=== PATIENT | female | born 1945 | race Caucasian/White ===

== ENCOUNTER 2017-03-02 15:24 | Inpatient (IN) | payer MEDICARE, OTHER ==
[~2017-03-02] VITALS: Ht 160 cm; Wt 51.1 kg
--- NOTE | 2017-03-02 16:01 | NUR ---
D/C INSTRUCTIONS EXPLAINED TO PT AND PTS DAUGHTER. D/C PAPERWORK SIGNED BY PTS DAUGHTER AND PLACED IN CHART. IV TO RIGHT FOREARM REMOVED WITH CATH TIP INTACT. COVERED SITE WITH 2X2 GAUZE PADS AND SECURED WITH TAPE. PT IS D/C WITH [facility] WITH 02 AT 2L VIA NC. DAUGHTER IS GETTING BELONGINGS TOGETHER NOW. WILL CONTINUE TO MONITOR.
--- NOTE | 2017-03-02 16:21 | NUR ---
RECEIVED PT VIA WHEELCHAIR WITH FAMILY MEMBERS. PT IS ON HOME 02 AT 2L VIA NC. ALERT AND ORIENTED. WILL ADMIT PT AND CONTINUE WITH PLAN OF CARE.
[2017-03-02] MEDS ORDERED: BAYER CHEWABLE81 MG PO (16:26)
[2017-03-02] MEDS ORDERED: PROVENTIL HFA6.7 GM INH (16:26)
[2017-03-02] MEDS ORDERED: PACERONE200 MG PO (16:26)
[2017-03-02] MEDS ORDERED: BUMEX2 MG PO (16:27)
[2017-03-02] MEDS ORDERED: BUSPIRONE HCL7.5 MG PO (16:28)
[2017-03-02] MEDS ORDERED: LISINOPRIL5 MG PO (16:28)
[2017-03-02] MEDS ORDERED: COREG 3.1253.125 MG PO (16:28)
[2017-03-02] MEDS ORDERED: ZOCOR10 MG PO (16:29)
[2017-03-02] MEDS ORDERED: TEMAZEPAM30 MG PO (16:30)
[2017-03-02] MEDS ORDERED: ALDACTONE25 MG PO (16:30)
[2017-03-02] MEDS ORDERED: HYDROCODON-ACE1 EAC7 PO (16:31)
[2017-03-02 16:34] VITALS: BP 147/70; BMI 18.8
[2017-03-02 17:01] LABS: BASOPHILS 0.6 % (0-2); EOSINOPHILS 1.1 % (0-7); HEMATOCRIT 40.1 % (36.0-48.0); LYMPHOCYTES 23.7 % (15-50); MCH 28.6 pg (26.0-34.0); MCHC 29.9 g/dL (31.0-37.0); MCV 95.5 fL (80.0-100.0); MONOCYTES 8.2 % (2-11); NEUTROPHILS 66.4 % (40-80); RDW 15.6 % (11.5-14.5); WBC 5.4 10x3/uL (4.8-10.8)
--- NOTE | 2017-03-02 17:15 | NUR ---
PT SITED WITH 22G IV CATHETER TO RIGHT FOREARM X1 STICK. TOLERATED WELL.
[2017-03-02 17:17] LABS: PLATELET COUNT 208 10x3/uL (130-400)
--- NOTE | 2017-03-02 17:43 | NUR ---
PT IS CURRENTLY SITTING UP IN BED WITH EYES OPEN EATING DINNER. NO NEED AT THIS CURRENT TIME. QUICKSTART IS DONE, ADMISSION ASSESSMENT IS DONE, AND ADMISSION HISTORY IS DONE. WILL CONTINUE TO MONITOR.
[2017-03-02 18:00] LABS: ALBUMIN 3.3 g/dL (3.4-5.0); ALKALINE PHOSPHATASE 140 U/L (46-116); ALT (SGPT) 17 U/L (10-68); BILIRUBIN - TOTAL 0.83 mg/dL (0.2-1.3); CALC OSMOLALITY 291 mosm/kg (275-300); CALCIUM 8.8 mg/dL (8.5-10.1); CARBON DIOXIDE 38.9 mmol/L (21.0-32.0); CHLORIDE - SERUM 103 mmol/L (98-107); CKMB 1.3 U/L (0.0-3.6); CREATINE KINASE 37 UL (21-215); GLUCOSE 89 mg/dL (74-106); POTASSIUM - SERUM 3.6 mmol/L (3.5-5.1); PROTEIN - SERUM 7.3 g/dL (6.4-8.2); SODIUM 147 mmol/L (136-145); TROPONIN-I 0.054 ng/mL (0.000-0.060); UREA NITROGEN 16 mg/dL (7-18); eGFR NON AFRICAN AMERICAN 58 mL/min (90-120)
[2017-03-02 22:46] VITALS: BP 123/52
--- NOTE | 2017-03-03 04:38 | NUR ---
ASSESSMENT COMPLETE, SEE FLOW SHEET, PT SLEEPING, BED IS LOW, SRX2, CALL LIGHT IN REACH, WILL CONTINUE PLAN OF CARE
[2017-03-03 05:05] VITALS: BP 130/68
--- NOTE | 2017-03-03 07:10 | NUR ---
AM ROUNDING- RECEIVED REPORT FROM CONSTRUCTION SECRETARY NURSE ALIREZA. PT IS CURRENTLY LAYING IN BED ON BACK WITH EYES OPEN RESTING. ON 02 AT 2L VIA NC. ON MONITOR SHOWING PACED, HR 67. IV SEEN TO LEFT FOREARM THAT IS CURRENTLY SALINE LOCKED. NO NEED AT THIS CURRENT TIME. WILL CONTINUE TO MONITOR AND CONTINUE WITH PLAN OF CARE.
[2017-03-03 08:00] VITALS: BP 146/77
--- NOTE | 2017-03-03 08:18 | HP ---
PATIENT: KACI BELL MEDICAL RECORD: [id number] ACCOUNT: [id number] LOCATION:[address] : 43 ADMISSION DATE: 03/02/17 HISTORY AND PHYSICAL EXAMINATION DATE OF ADMISSION: 03/02/2017 CHIEF COMPLAINT: "Cannot get enough air." HISTORY OF PRESENT ILLNESS: This is a 71-year-old white female who presented to the office today complaining of almost a week's history of increased shortness of breath, cough and just not seem to get enough air and she is followed by Dr. Gutiérrez. She has COPD. She has moved recently, but denies any problems from that. She denies any fever or chills. In my office, her O2 sat was 89%. She was using accessory muscles to breathe and moving a little air. Decision was made to directly admit her to [facility] for further evaluation and treatment. PAST MEDICAL HISTORY: She has a history of COPD, coronary artery disease, hypertension, sick sinus syndrome, high cholesterol, arthritis, osteoporosis and vertebral fracture. PAST SURGICAL HISTORY: Appendectomy, cholecystectomy, coronary artery bypass times 3, hysterectomy, AICD placement. She had T12 corpectomy in [facility]. Last year, she had a two stage T4-pelvis deformity correction. ALLERGIES: IODINE AND PENICILLIN. HOME MEDICATIONS: Carvedilol 3.125 mg twice a day, temazepam 30 mg at bedtime p.r.n., Aldactone 25 mg every morning, Cordarone 200 mg twice a day, BuSpar 7.5 mg twice a day, Lasix 40 mg once a day, Ventolin HFA p.r.n., Percocet q.6 hours p.r.n., but states she takes irregularly. HABITS: She continues to smoke with a long history of smoking. No alcohol or drugs. SOCIAL HISTORY: She is and retired. FAMILY HISTORY: Father had cancer. Mother had stroke. REVIEW OF SYSTEMS: GENERAL: No major weight changes. HEENT: No particular sinus or allergy problems. RESPIRATORY: Long history of smoking. Long history of chronic obstructive pulmonary disease. CARDIAC: She has coronary artery disease and has had bypass surgery. GASTROINTESTINAL: Has had reflux. GENITOURINARY: No significant problems there. MUSCULOSKELETAL: She has osteoporosis, compression fractures. NEUROLOGIC: No headaches. No seizures. PSYCHIATRIC: No depression. She has some anxiety. PHYSICAL EXAMINATION: VITAL SIGNS: Temperature 98.1, pulse 80, respirations 18, blood pressure 147/70, O2 sat 90% in the office. She was using accessory muscles to breathe HISTORY AND PHYSICAL [id number] RAY,KACI and moves little air. SKIN: Warm and dry. HEENT: Grossly within normal limits. NECK: Supple. No JVD or bruit. HEART: Regular rate and rhythm. LUNGS: Distant breath sounds, a few scattered wheezes. ABDOMEN: Soft. EXTREMITIES: No edema. LABORATORY DATA: CBC with a white count of 5400, hemoglobin 12, hematocrit 40, platelets number 208,000. Sodium 147, potassium 3.6, chloride 103, CO2 38.9, BUN 16, creatinine 1.0. Glucose 89, calcium 8.8. Liver enzymes were all essentially normal. Cardiac enzymes are normal. Chest x-ray was done showing prominent pulmonary vasculature, enlarged heart, no pneumonia is seen. There is spinal hardware posteriorly, which appears intact. ICDs in place over the right atrium and right ventricle. There is diffuse osteopenia. ASSESSMENT: 1. Chronic obstructive pulmonary disease exacerbation. 2. Hypoxia. PLAN: We will admit, give steroids, respiratory care, consult Dr. Gutiérrez. Other tests and procedures as warranted. TRANSINT:[id number] Voice Confirmation ID: [id number] DOCUMENT ID: [id number] ANNEMARIE BENITEZ MD at 0818 CC: [id number] DICTATION DATE: 03/02/172306 INSPECTOR BALANCE WHEEL MOTION: 03/03/17 0012 ADM IN [id number] [place] [id number]
[2017-03-03 12:00] VITALS: BP 122/61
[2017-03-03 12:34] VITALS: BP 155/49
[2017-03-03 13:35] VITALS: Ht 160 cm; Wt 51.1 kg
--- NOTE | 2017-03-03 13:58 | NUR ---
PTS IV TO FOREARM INFILTRATED. PT STATES SITE IS SWOLLEN AND HURTS WHEN IV MEDICAITON IS INSERTED INTO IV. THIS NURSE ASSESSED SITE. SITE APPEARS PUFFY AND BRUISED. IV REMOVED WITH CATH TIP INTACT. PT IS REFUSING IV ACCESS AT THIS TIME. WILL CONTINUE TO MONITOR.
[2017-03-03 15:39] VITALS: BP 174/66
--- NOTE | 2017-03-03 16:19 | NUR ---
1600- DOLLY BAPTISTE VASCULAR ACCESS NURSE SITED PT WITH 22G IV CATHETER TO RIGHT FOREARM. 1620- CALLED INTO PTS ROOM FOR PTS DAUGHTER STATING PTS IV IS INFILTRATED. THIS NURSE WENT TO CHECK ON PT AND IV SITE IS SWOLLEN AND HARD TO TOUCH. THIS NURSE CALLED DOLLY BAPTISTE VASCULAR ACCESS NURSE. NO ANSWER. WILL TRY AGAIN.
--- NOTE | 2017-03-03 16:29 | NUR ---
PRIOR ON SHIFT, DR. RIOS ON FLOOR AND STATES TO THIS NURSE "I ORDERED A D-DIMER TEST, IF IT COMES BACK POSITIVE ORDER CTA SCAN OF CHEST". DR. RIOS IS AWARE THAT PT HAS AN IODINE ALLERGY. WILL TX PT PER CONTRAST ALLERGY PROTOCOL.
--- NOTE | 2017-03-03 16:39 | NUR ---
DOLLY BAPTISTE, VASCULAR ACCESS NURSE ON UNIT. INFORMED HER THAT PTS PRIOR IV INFILTRATED. DOLLY BAPTISTE, VASCULAR ACCESS NURSE LOOKING FOR IV SITE.
--- NOTE | 2017-03-03 16:40 | NUR ---
SPOKE WITH ALTON IN RADIOLOGY. ASKED HER WHEN PTS CTA WOULD BE TOMORROW DUE TO HAVING TO TX PT WITH CONTRAST ALLERGY PROTOCOL. MARIBEL STATES SHE WILL HAVE YAAKOV CALL ME TO LET ME KNOW TO START PROTOCOL.
--- NOTE | 2017-03-03 16:41 | NUR ---
DR. RIOS PAGED REGARDING PTS D-DIMER AND CTA ORDERED HE STATED. WILL AWAIT CALLBACK AND CONTINUE TO MONITOR.
--- NOTE | 2017-03-03 16:59 | NUR ---
GAYATHRI IN PHARMACY CALLS AND STATES TO LET HER KNOW ONCE RADIOLOGY CALLS WITH TIME FOR CTA TOMORROW SO SHE CAN PLACE CONTRAST ALLERGY PROTOCOL ORDERS IN PER PROTOCOL. WILL AWAIT RADIOLOGY TO CALL WITH TIME.
--- NOTE | 2017-03-03 17:01 | NUR ---
DOLLY BAPTISTE VASCULAR ACCESS NURSE SITED PT WITH 22G IV CATHETER TO LEFT FOREARM.
--- NOTE | 2017-03-03 17:02 | NUR ---
RICHIE DUONG RN TOOK OUT PTS OLD IV (INFILATRATED) TO RIGHT FOREARM. COVERED SITE WITH 2X2 GAUZE PADS AND SECURED WITH TAPE.
--- NOTE | 2017-03-03 17:08 | NUR ---
YAAKOV FROM RADIOLOGY CALLED AND STATES PT WILL BE GOING FOR CTA AROUND 0900. GAYATHRI IN PHARMACY CALLED FOR CONSTRAST ALLERGY TIMES.
--- NOTE | 2017-03-03 17:17 | NUR ---
PT IS CURRENTLY SITTING UP IN BED WITH EYES OPEN RESTING VISITING WITH FAMILY MEMBER. NO NEED AT THIS CURRENT TIME. WILL CONTINUE TO MONITOR.
[2017-03-03 22:54] VITALS: BP 148/63
[2017-03-04 04:27] VITALS: BP 146/61
[2017-03-04 05:47] LABS: BASOPHILS 0 % (0-2); EOSINOPHILS 0 % (0-7); HEMATOCRIT 38.1 % (36.0-48.0); HEMOGLOBIN 11.5 g/dL (12-16); IMMATURE GRANULOCYTES 0.2 % (0-5); LYMPHOCYTES 6.6 % (15-50); MCH 28.3 pg (26.0-34.0); MCHC 30.2 g/dL (31.0-37.0); MCV 93.8 fL (80.0-100.0); MEAN PLATELET VOLUME 10.4 fL (7.4-10.4); MONOCYTES 1.1 % (2-11); NEUTROPHILS 92.1 % (40-80); PLATELET COUNT 237 10x3/uL (130-400); RBC 4.06 10x6/uL (4.00-5.40); RDW 15.6 % (11.5-14.5); WBC 5.6 10x3/uL (4.8-10.8)
--- NOTE | 2017-03-04 06:17 | NUR ---
NURSE ROUNDS 03/03/17 21:00 - PT LYING IN BED, AWAKE, ALERT, ORIENTED, DENIES ANY NEEDS. CONTINUE OT MONITOR CLOSELY.
[2017-03-04 06:26] LABS: ANION GAP 7.2 mmol/L (8-16); CALCIUM 8.4 mg/dL (8.5-10.1); CARBON DIOXIDE 38.9 mmol/L (21.0-32.0); CREATININE - SERUM 0.9 mg/dL (0.6-1.3); MAGNESIUM - SERUM 1.7 mg/dL (1.8-2.4); POTASSIUM - SERUM 4.1 mmol/L (3.5-5.1)
--- NOTE | 2017-03-04 07:49 | NUR ---
AM ROUNDING- RECEIVED REPORT FROM BOX LINING MACHINE FEEDER NURSE SHERRON. PT IS CURRENTLY LAYING IN BED ON BACK WITH EYES OPEN RESTING. PT STATES "I WANT TO GET SLEEP". PT IS GOING FOR CTA TODAY PER DR. RIOS. THIS NURSE CALLED RADIOLOGY THIS AM DUE TO CONTRAST ALLERGY PROTOCOL MEDICAITON TIMES GETTING PUSHED BACK. INFORMED UCHE IN RADIOLOGY THAT PTS LAST DOSE OF PREDISONE AND BENADRYL WILL BE AT 1000. PT IS ON 02 AT 2L VIA NC. ON MONITOR SHOWING PACED, HR 66. NO NEED AT THIS CURRENT TIME. WILL CONTINUE TO MONITOR AND CONTINUE WITH PLAN OF CARE.
[2017-03-04 08:28] VITALS: BP 137/72
--- NOTE | 2017-03-04 11:50 | NUR ---
PT FROM CTA SCAN.
[2017-03-04 12:11] VITALS: BP 119/75
--- NOTE | 2017-03-04 12:12 | CN ---
PATIENT NAME:KACI SOLIS MEDICAL RECORD: [id number] : 41 LOCATION:[address] ADMIT DATE: 03/02/17 ACCOUNT: [id number] CONSULTING PHYSICIAN: RENAE RIOS MD REFERRING PHYSICIAN: ANNEMARIE BENITEZ MD DATE OF CONSULTATION: 03/03/2017 CONSULT REQUESTING PHYSICIAN: Dr. Annemarie Benitez. REASON FOR CONSULTATION: Acute exacerbation of COPD. HISTORY OF PRESENT ILLNESS: Ms. Solis is a 71-year-old female, very well known to me. The patient is sick for the last couple of weeks. She is coughing. She has shortness of breath with mild exertion. She hears herself wheezing. She denies any fever or chills. There are no night sweats. She was seen in Dr. Benitez's office yesterday and her pulse ox was 89% on 3 liters nasal cannula. REVIEW OF SYSTEMS: As in history of present illness. PAST MEDICAL HISTORY: 1. COPD. 2. Coronary artery disease. 3. Hypertension. 4. Sick sinus syndrome. 5. Hypercholesterolemia. 6. Osteoporosis. 7. History of vertebral fracture. PAST SURGICAL HISTORY: 1. She has a back surgery. 2. Appendectomy. 3. Cholecystectomy. 4. CABG times 3. 5. Hysterectomy. 6. AICD placement. ALLERGIES: SHE IS ALLERGIC TO PENICILLIN AND IODINE. PRESENT MEDICATIONS: [employer] was reviewed. PERSONAL AND SOCIAL HISTORY: The patient is . I believe she still continues to smoke. She is a nondrinker. FAMILY HISTORY: Father of cancer. Mother of stroke. PHYSICAL EXAMINATION: GENERAL: Now, the patient is lying comfortably in bed. She is not in acute distress. VITAL SIGNS: The blood pressure 122/61, pulse is 67, respiration is 18, temperature 97.3, SpO2 of 97% on 2.5 liters nasal cannula. HEENT: Conjunctivae pink, sclerae nonicteric. NECK: Neck is supple, no JVD. CHEST: The chest excursion is minimal on both sides. No wheezes, no rales. HEART: Rhythm regular, normal sound, no murmur. CONSULT REPORT [id number] KACI SOLIS ABDOMEN: Abdomen is soft, bowel sounds present. No hepatosplenomegaly. RECTAL: Deferred. EXTREMITIES: No cyanosis, no clubbing, no pedal edema. SKIN: The skin is warm, normal turgor. CENTRAL NERVOUS SYSTEM: The patient is awake and alert. There is no obvious cranial nerve abnormality. The gait was not tested. CHEST RADIOGRAPH: There is hyperinflation, no acute infiltrate. There is osteopenia of the spine. LABORATORY DATA: CBC: WBC 5.4, hemoglobin 12, hematocrit 40.1 and the platelet count 208. Chemistry: Sodium 147, potassium 3.6, BUN is 16, creatinine is 1, glucose 89. IMPRESSION: 1. Acute exacerbation of chronic obstructive pulmonary disease. 2. Tracheobronchitis. 3. Rgqip-ge-ilprrib hypoxic respiratory failure. 4. Acute cough. 5. Hypernatremia, possible with increased oral intake. 6. Gastroesophageal reflux disease. 7. Chronic backache. RECOMMENDATION: 1. Continue supplemental oxygen. 2. Albuterol, ipratropium nebulizer. 3. Brovana, budesonide nebulizer. 4. Methylprednisolone IV. 5. Start on doxycycline IV. 6. Mucinex and Tessalon Perles. 7. Follow up labs. Dr. Benitez, thank you for involving me in the care of Ms. Solis. TRANSINT:[id number] Voice Confirmation ID: [id number] DOCUMENT ID: [id number] RENAE RIOS MD at 1212 CC: ANNEMARIE BENITEZ MD [id number] DICTATION DATE: 03/03/17 1454 RACK WASHER: 03/03/17 1600 ADM IN [place] [id number] [place] [address]
[2017-03-04 15:28] VITALS: BP 128/76
--- NOTE | 2017-03-04 17:18 | NUR ---
PT IS SITTING UP IN BED WITH EYES OPEN RESTING EATING DINNER. PT DENIES ANY NEED AT THIS TIME. WILL CONTINUE TO MONITOR.
--- NOTE | 2017-03-04 21:12 | NUR ---
PT LYING IN BED, AWAKE, ALERT, ORIENTED, DENIES ANY NEEDS. PT STATES SHE IS FEELING BETTER, STILL WITH MILD EXERTIONAL DYSPNEA WHEN AMBULATING TO BATHROOM. CONTINUE TO MONITOR PT CLOSELY. BED LOW, CALL LIGHT IN REACH, SIDE RAILS X 2, HOB 10-20 DEGREES.
[2017-03-04 21:14] VITALS: BP 127/71
[2017-03-04 23:29] VITALS: BP 128/70
--- NOTE | 2017-03-05 01:49 | NUR ---
NURSE ROUNDS 00:45 - PT WAS FOUND LYING BACKWARDS ACROSS THE TOILET WITH HER HEAD TOWARDS THE FLOOR. WHEN VALERI CAAL AND MYSELF ASSISTED PT OUT OF THAT POSITION TO AN UPRIGHT POSITION, PT WAS C/O NECK PAIN. PT DID NOT FALL, HOWEVER, SHE DID AMBULATE TO THE BATHROOM WITHOUT CALLING FOR ASSISTANCE AFTER TAKING TEMAZEPAM FOR SLEEP, AND PER PATIENT, BECAME DIZZY AND STARTED TO FALL BACKWARDS. PT DID CATCH HERSELF ON THE SAFETY BAR IN THE BATHROOM, BUT WAS UNABLE TO PULL HERSELF UPWARDS WITHOUT ASSISTANCE. PT HAD ALSO BEEN INCONTINENT OF BOWEL AT THIS TIME, WHICH IS WHAT PROVOKED HER TO AMBULATE TO THE BATHROOM. PT STATED SHE FELT "DRUNK" FROM THE MEDICINE, AND WAS SLURRING HER WORDS. PT WAS CLEANED WITH BATH WIPES, CLEAN GOWN AND BRIEFS PLACED ON PT, BED WAS CHANGED AND CLEAN LINEN PLACED WELL. PT WAS ASSISTED BACK INTO BED, RESP TX WAS CALLED TO CHECK PTS O2, PT HAD ALSO DISLODGED HER TUBING FROM THE O2 AT THE WALL. INITIALLY, PTS O2 SAT WAS 80%, BUT IS NOW @ 92% ON 6 LPM. WILL WEAN PT BACK DOWN GRADUALLY. I PLACED A WARM BLANKET ON PT AFTER BEING ASSISTED BACK INTO BED, PT IS NOW RESTING COMFORTABLY, EYES CLOSED, RESPIRATIONS EVEN AND UNLABORED, AND EASILY ROUSABLE TO VERBAL STIMULI. TELEMETRY PADS ALSO REPLACED, WITH A READING OF DUAL PACED @ 64 BPM. I HAVE ALSO PLACED A MACHO MAT ALARM SYSTEM UNDER PATIENT, AND HAVE ENCOURAGED PT AGAIN TO ALWAYS CALL WHEN NEEDING ANY ASSISTANCE. PT DISLODGED HER IV TO HER LFT FOREARM, SO I REMOVED IT WITH CATH TIP INTACT. WILL RESITE. PTS DOOR WILL REMAIN OPEN THE FOR REMAINDER OF SHIFT. AFTER A FEW MINUTES OF BEING AWAKE DURING THIS, PT DID BEGIN TO REGAIN HER LUCIDITY, AND HER SPEECH CLEARED WELL. I HAVE PLACED PTS CALL LIGHT ON HER CHEST, AND REMINDED HER AGAIN THAT SHE MUST ALWAYS CALL BEFORE TRYING TO AMBULATE. WILL CONTINUE TO MONITOR PT CLOSELY.
--- NOTE | 2017-03-05 04:22 | NUR ---
PT RESTING COMFORTABLY, DENTURES PLACED IN DENTURE CUP WITH WATER AT BEDSIDE. PTS O2 HAS MAINTAINED WELL AT 100% NOW BACK TO 2 LPM VIA NC. NO NEEDS AT THIS TIME. CONTINUE TO MONITOR CLOSELY. BED LOW, CALL LIGHT IN REACH, SIDE RAILS X 2, HOB 30 DEGREES, MACHO MAT IN PLACE AND ON, PTS DOOR REMAINS OPEN AT THIS TIME.
[2017-03-05 04:49] VITALS: BP 135/79
[2017-03-05 06:16] LABS: BASOPHILS 0 % (0-2); EOSINOPHILS 0 % (0-7); HEMATOCRIT 36.1 % (36.0-48.0); HEMOGLOBIN 11.1 g/dL (12-16); IMMATURE GRANULOCYTES 0.2 % (0-5); LYMPHOCYTES 3.1 % (15-50); MCH 28.9 pg (26.0-34.0); MCHC 30.7 g/dL (31.0-37.0); MEAN PLATELET VOLUME 10.5 fL (7.4-10.4); MONOCYTES 4.4 % (2-11); NEUTROPHILS 92.3 % (40-80); PLATELET COUNT 200 10x3/uL (130-400); RBC 3.84 10x6/uL (4.00-5.40)
[2017-03-05 06:27] LABS: WBC 8.6 10x3/uL (4.8-10.8)
[2017-03-05 06:30] LABS: ANION GAP 8.6 mmol/L (8-16); CALCIUM 8.3 mg/dL (8.5-10.1); CARBON DIOXIDE 37.2 mmol/L (21.0-32.0); CREATININE - SERUM 0.9 mg/dL (0.6-1.3); MAGNESIUM - SERUM 1.8 mg/dL (1.8-2.4); POTASSIUM - SERUM 3.8 mmol/L (3.5-5.1)
--- NOTE | 2017-03-05 07:40 | NUR ---
MORNING ROUNDS MADE. PATIENT LAYING IN BED WITH EYES CLOSED AND AROUSED EASILY WHEN SPOKEN TO. BED IN LOWEST POSITION AND LOCKED, BED ALARM IS ON, CALL LIGHT IS IN REACH. PATIENT DENIES ANY NEEDS AT THIS TIME. CPOC.
[2017-03-05 08:55] VITALS: BP 142/73
--- NOTE | 2017-03-05 08:59 | NUR ---
PATIENT SITTING UP IN BED. MORNING MEDS GIVEN. PATIENT CURRENTLY HAS NO IV ACCESS AND THE PEPCID CAN'T BE GIVEN AT THIS TIME. INSTRUCTED PATIENT TO PUSH CALL LIGHT BEFORE GETTING OUT OF BED, CALL LIGHT IS IN REACH. CPOC.
--- NOTE | 2017-03-05 09:50 | NUR ---
PATIENT LAYING IN BED. STATES HER BACK IS HURTING, 10/10 SHARP PAIN WHEN SHE MOVES AND 5/10 WHEN LAYING REAL STILL. PAIN MEDS GIVEN, WILL CONTINUE TO MONITOR. INSTRUCTED TO USE CALL LIGHT BEFORE GETTING OUT OF BED. MACHO ALARM IN PLACE. CPOC.
--- NOTE | 2017-03-05 11:01 | NUR ---
PATIENT LAYING IN BED, EYES CLOSED. AROUSED WHEN SPOKEN TO. STATES HER PAIN IS NOW A 2/10 BECAUSE SHE IS LAYING STILL, BUT STATES IT WILL PROBABLY HURT AGAIN WHEN SHE MOVES. HER IV HAS BEEN RESITED TO RIGHT FOREARM. FAMOTIDINE GIVEN. CALL LIGHT IN REACH. CPOC.
[2017-03-05 12:05] VITALS: BP 118/69
--- NOTE | 2017-03-05 13:42 | NUR ---
PATIENT GETTING UP AND WALKING WITH PT.
--- NOTE | 2017-03-05 13:45 | NUR ---
PATIENT AMBULATING WITH PT AT THIS TIME. CPOC
--- NOTE | 2017-03-05 15:26 | NUR ---
PATIENT RESTING IN BED, WATCHING TV. DENIES ANY NEEDS AT THIS TIME. CALL LIGHT IN REACH. CPOC.
[2017-03-05 15:49] VITALS: BP 123/62
--- NOTE | 2017-03-05 17:00 | NUR ---
ASSISTED PATIENT TO BATHROOM, PATIENT HAD BM X 1 AND URINATED. PATIENT SITTING ON SIDE OF BED EATING DINNER. DENIES ANY NEEDS. CPOC
--- NOTE | 2017-03-05 17:51 | NUR ---
PATIENT LAYING IN BED WITH EYES CLOSED, AROUSED EASILY WHEN SPOKEN TO. DENIES ANY NEEDS. CPOC.
--- NOTE | 2017-03-05 18:23 | NUR ---
EVENING ROUNDS MADE, INFORMED PATIENT I WILL BE LEAVING SOON. MEDS GIVEN. PATIENT REFUSED HER LASIX, STATES SHE HAS ALWAYS JUST TAKEN IT IN THE MORNING AND FEELS IF SHE TAKES IT AT NIGHT SHE WILL FALL WHEN SHE HAS TO GET UP TO USE THE BATHROOM. NO NEEDS AT THIS TIME. CALL LIGHT IN REACH. CPOC.
[2017-03-05 21:38] VITALS: BP 131/74
--- NOTE | 2017-03-05 22:07 | NUR ---
PT AWAKE, ALERT, ORIENTED, ASSISTED TO BATHROOM, RECEIVED A SPONGE BATH, AND ASSISTED BACK TO BED. CLEAN GOWN AND CLEAN LINENS PLACED. PT STATES SHE IS SORE FROM HER INCIDENT LAST NIGHT, BUT IS FEELING BETTER/BREATHING BETTER. NO OTHER NEEDS. MACHO MAT ALARM PLACED UNDER PT AND ON, CALL LIGHT IN REACH, SIDE RAILS X 2, HOB 20 DEGREES. DOOR TO REMAIN OPEN WHILE PT IS SLEEPING, CONTINUE TO MONITOR PT CLOSELY.
[2017-03-06 01:30] VITALS: BP 121/68
--- NOTE | 2017-03-06 04:18 | NUR ---
PT RESTING COMFORTABLY, HAS NOT TRIED TO AMBULATE SINCE TAKING RESTORIL AND GOING TO SLEEP. PT IS EASILY ROUSABLE TO VERBAL STIMULI. DOOR REMAINS OPEN AT THIS TIME, MACHO MAT REMAINS UNDER PT FOR INCREASED SAFETY. CONTINUE TO MONITOR CLOSELY. BED LOW, CALL LIGHT IN REACH, SIDE RAILS X 2, HOB 10 DEGREES.
[2017-03-06 04:53] VITALS: BP 137/74
[2017-03-06 06:25] LABS: BASOPHILS 0 % (0-2); EOSINOPHILS 0 % (0-7); HEMATOCRIT 36.6 % (36.0-48.0); IMMATURE GRANULOCYTES 0.2 % (0-5); LYMPHOCYTES 4.2 % (15-50); MCH 28.6 pg (26.0-34.0); MCHC 30.1 g/dL (31.0-37.0); MCV 95.1 fL (80.0-100.0); MEAN PLATELET VOLUME 10.5 fL (7.4-10.4); NEUTROPHILS 93.6 % (40-80); PLATELET COUNT 214 10x3/uL (130-400); RBC 3.85 10x6/uL (4.00-5.40); RDW 16.5 % (11.5-14.5)
[2017-03-06 06:30] LABS: ANION GAP 8.8 mmol/L (8-16); CARBON DIOXIDE 37.1 mmol/L (21.0-32.0); CREATININE - SERUM 0.9 mg/dL (0.6-1.3); MAGNESIUM - SERUM 1.9 mg/dL (1.8-2.4); POTASSIUM - SERUM 3.9 mmol/L (3.5-5.1)
--- NOTE | 2017-03-06 07:30 | NUR ---
REPORT RECEIVED. RR EVEN AND UNLABORED, PT DENIES NEEDS AT THIS TIME. ASSESSMENT PERFORMED. WILL CTM.
[2017-03-06 08:26] VITALS: BP 137/76
[2017-03-06 12:18] VITALS: BP 124/73
--- NOTE | 2017-03-06 14:15 | NUR ---
PT RESTING QUIETLY, RR EVEN AND UNLABORED. NO SIGNS OF DISTRESS. DENIES NEEDS AT THIS TIME, WILL CTM.
--- NOTE | 2017-03-06 14:35 | NUR ---
Nutrition follow-up: Diet: Regular soft as tolerated PO intake ~50% average of last 9 meals Labs reviewed Wt: 106# Will continue to provide food choices and honor food preferences. RDN will order Ensure with meals. RDN following.
[2017-03-06 16:12] VITALS: BP 150/73
--- NOTE | 2017-03-06 16:38 | NUR ---
Patient Name: KACI BELL Admission Status: Urgent Accout number: [id number] Admission Date: 03-02-2017 : 1945 Admission Diagnosis:SHORTNESS OF BREATH Attending: ANNEMARIE BENITEZ Current LOS: 4 Anticipated DC Date: Planned Disposition: Home Primary Insurance: MEDICARE A & B Discharge Planning Comments: * Is the patient Alert and Oriented? Yes 0 * How many steps to enter\exit or inside your home? 1 0 * PCP DR. BENITEZ 0 * Pharmacy [facility] 0 * Preadmission Environment Home with Family 0 * ADLs Independent 0 * Equipment Nebulizer Oxygen Walker 0 * Other Equipment HOME AND PORTABLE OXYGEN [facility] MEDICAL EQUIPMENT PROVIDER PREFERENCE 0 * List name and contact numbers for known caregivers / representatives who currently or will assist patient after discharge: BROOKLYN RODRIGUEZ, DTR, 0 * Community resources currently utilized None 0 * Please name any agencies selected above. NONE 0 * Additional services required to return to the preadmission environment? No 0 * Can the patient safely return to the preadmission environment? Yes 0 * Has this patient been hospitalized within the prior 30 days at any hospital? No 0 CM MET WITH PT IN ROOM TO DISCUSS DISCHARGE PLANNING AND NEEDS. PT REPORTS LIVING AT HOME INDEPENDENTLY; PT'S ADULT SON ALSO LIVES IN THE HOME. PT HAS NEBULIZER, WALKER, HOME AND PORTABLE OXYGEN FROM [facility]. PT HAS NO OUTSIDE SERVICES ASSISTING IN THE HOME. CM DISCUSSED AVAILABILITY OF HOME HEALTH, REHAB SERVICES AND MEDICAL EQUIPMENT. PT DENIES DISCHARGE NEEDS AT THIS TIME, REPORTS HER SON WILL PICK HER UP FOR DISCHARGE HOME. Health Policy Manager: Dandre Hall
--- NOTE | 2017-03-06 18:20 | NUR ---
PT RESTING QUIETLY, RR EVEN AND UNLABORED. FAMILY AT BEDSIDE. WILL GIVE REPORT ON PT CONDTION FOR THE DAY.
--- NOTE | 2017-03-06 19:16 | NUR ---
RECIEVED LAYING IN BED WITH O2@2 LITERS PER N/C. ATTEMTS TO EDUCATE ON THE NEED TO BE ELEVATED UNSUCCESFUL. REFUSED TO RAISE HOB AT ALL. STATES "I'VE HAD BACK SURGERIES AND IT HURTS IF I SIT UP". CALL LIGHT AND OVERBED TABLE IN REACH.
[2017-03-06 20:00] VITALS: BP 135/64
[2017-03-07] VITALS: BP 137/76
[2017-03-07 04:00] VITALS: BP 134/78
[2017-03-07 05:09] LABS: BASOPHILS 0 % (0-2); EOSINOPHILS 0 % (0-7); HEMATOCRIT 39.9 % (36.0-48.0); HEMOGLOBIN 12.1 g/dL (12-16); IMMATURE GRANULOCYTES 0.3 % (0-5); LYMPHOCYTES 4.1 % (15-50); MCH 28.7 pg (26.0-34.0); MCHC 30.3 g/dL (31.0-37.0); MCV 94.5 fL (80.0-100.0); MEAN PLATELET VOLUME 10.4 fL (7.4-10.4); MONOCYTES 1.9 % (2-11); NEUTROPHILS 93.7 % (40-80); PLATELET COUNT 205 10x3/uL (130-400); RBC 4.22 10x6/uL (4.00-5.40); RDW 16.3 % (11.5-14.5)
[2017-03-07 05:17] LABS: WBC 6.9 10x3/uL (4.8-10.8)
[2017-03-07 05:19] LABS: ANION GAP 8.3 mmol/L (8-16); CALCIUM 8.2 mg/dL (8.5-10.1); CARBON DIOXIDE 37.3 mmol/L (21.0-32.0); MAGNESIUM - SERUM 1.9 mg/dL (1.8-2.4)
[2017-03-07 05:20] LABS: POTASSIUM - SERUM 4.6 mmol/L (3.5-5.1)
--- NOTE | 2017-03-07 07:15 | NUR ---
REPORT RECEIVED. RR EVEN AND UNLABORED, PT ASLEEP. NAME PLACED ON WHITE BOARD, BED IN LOWEST POSTION, CALL MARK IN REACH, WILL CTM.
[2017-03-07 07:48] VITALS: BP 135/80
[2017-03-07] MEDS ORDERED: ELIQUIS5 MG PO (09:23)
[2017-03-07] MEDS ORDERED: MEDROL DOSE PACK4 MG PO (09:24)
[2017-03-07] MEDS ORDERED: DOXYCYCLINE HY100 M2 PO (09:25)
--- NOTE | 2017-03-07 11:00 | NUR ---
PT IS D/C. JING WILL NOT BE HERE UNTIL AFTER 1500. WILL AWAIT DAUGHTER TO ARRIVE. WILL PROVIDED TEACHING AT THAT TIME PER DAUGHTER REQUEST.
--- NOTE | 2017-03-07 16:00 | NUR ---
PT DISCHARGED. D/C INSTURCTIONS PROVIDED AND GIVEN TO PT AND FAMILY. BOTH VERBALIZED UNDERSTANDING. IV CATHTER REMOVED WITH CATHETER TIP INTACT. TELE REMOVED AND RETURNED TO POULTRY FARMWORKER. PT DENIES FURTHER NEEDS. WILL BE TRANSPORTED VIA WHEELCHAIR OUTSIDE ON O2 AND WILL BE PLACED ON HOME O2 [facility]. PT DENIES FURTHER NEEDS.
--- NOTE | 2017-03-31 12:14 | EC ---
PATIENT:KACI BELL DATE OF SERVICE: 03/02/17 SEX: F MEDICAL RECORD: [id number] DATE OF : [birth year] LOCATION:D.M2 D.210 AGE OF PATIENT: 71 ADMISSION DATE: 03/02/17 REFERRING PHYSICIAN: INTERPRETING PHYSICIAN: TEMITOPE LANDRUM MD ECHOCARDIOGRAM REPORT ECHO CHARGES 4 ECHO COMPLETE CLINICAL DIAGNOSIS: P/E CHF HX CAD/CABG ECHOCARDIOGRAPHIC MEASUREMENTS (adult normal given) AC root (d.<3.7cm) 2.9 cm LV Septum d (<1.2 cm> 1.2 cm Valve Excursion 1.8 cm LV Septum (systole) 1.4 cm Left Atria (s.<4.0cm> 4.2 cm LVPW d(<1.2cm) 1.2 cm RV (d.<2.3cm) 4.1 cm LVPW (sytole) 1.6 cm LV diastole(<5.6CM) 6.7 cm MV E-F(>70mm/sec) cm LV systole 5.3 cm LVOT Diameter 1.6 cm MV exc.(>10mm) 1.6 cm Est.ejection fraction (50-75%) % Pericardial Effusion N DOPPLER: LVIT cm/sec A 47.0 cm/sec E 99.0 cm/sec LA cm/sec RVSP 40 mmHg LVOT cm/sec AOP1/2T m/s Asc. Ao cm/sec RVOT 67 cm/sec RA cm/sec PA 74 cm/sec AV Gradient Peak mmHg AV Mean mmHg AV Area 2.0 cm MV Gradient Peak 4.45 mmHg MV Mean 1.08 mmHg MV Area cm COMMENTS: Legal Administrative Assistant: Lydia JACOBO Facilities Planner: 1 Dr. Landrum TAPE# PACS DATE OF SERVICE: 03/05/2017 PROCEDURE: Echocardiogram FINDINGS: 1. Left ventricle chamber size is mildly dilated. Left ventricular systolic function is moderately reduced, overall ejection fraction 30% to 35%. 2. Left atrium is enlarged at 4.2 cm. Right atrium and right ventricle chamber sizes are as well mildly dilated. 3. Valvular structures have normal structure and motion. ECHOCARDIOGRAM REPORT [id number] KACI BELL 4. Doppler interrogation reveals moderate to severe mitral regurgitation, moderate to severe tricuspid regurgitation, no other valvular insufficiency or stenosis. Pulmonary systolic pressure is only mildly elevated estimated at 40 mmHg. 5. No evidence of pericardial effusion or left ventricular thrombus. TRANSINT:[id number] Voice Confirmation ID: [id number] DOCUMENT ID: [id number] 03/18/2017 Edited to correct date of service, [email or web address]. TEMITOPE LANDRUM MD at 1214 CC: [id number] DICTATION DATE: 03/06/17 1101 CREATIVE COORDINATOR: 03/06/17 1146 DIS IN 03/07/17 [id number] [place] [address]
== END 2017-03-07 16:20 | disposition home or self-care (01) | DRG 175 ==
LOC: D.M2 15:24
PROVIDERS: Internal Medicine Pulmonary Disease; ADMIT Family Medicine
DX: I26.99 Other pulmonary embolism without acute cor pulmonale (principal); J96.21 Acute and chronic respiratory failure with hypoxia; J18.9 Pneumonia, unspecified organism; I50.23 Acute on chronic systolic (congestive) heart failure; J44.1 Chronic obstructive pulmonary disease with (acute) exacerbation; D68.59 Other primary thrombophilia; E87.0 Hyperosmolality and hypernatremia; J44.0 Chronic obstructive pulmonary disease with (acute) lower respiratory infection; J98.11 Atelectasis; I25.10 Atherosclerotic heart disease of native coronary artery without angina pectoris; M81.0 Age-related osteoporosis without current pathological fracture; K21.9 Gastro-esophageal reflux disease without esophagitis; I27.20 Pulmonary hypertension, unspecified; I11.0 Hypertensive heart disease with heart failure; Z95.810 Presence of automatic (implantable) cardiac defibrillator; Z72.0 Tobacco use; Z95.1 Presence of aortocoronary bypass graft

== ENCOUNTER 2017-07-20 14:17 | Inpatient (IN) | payer MEDICARE, OTHER ==
[~2017-07-20] VITALS: Ht 160 cm; Wt 43.5 kg
--- NOTE | ~2017-07-20 | CN ---
PATIENT NAME:KACI SOLIS MEDICAL RECORD: [id number] : 41 LOCATION:D.M2 D.2138 ADMIT DATE: 07/20/17 ACCOUNT: [id number] CONSULTING PHYSICIAN: RENAE RIOS MD REFERRING PHYSICIAN: ANNEMARIE BENITEZ MD DATE OF CONSULTATION: 07/21/2017 CONSULT REQUESTING PHYSICIAN: Annemarie Benitez MD (Bill) REASON FOR CONSULTATION: Acute hypoxic respiratory failure, COPD exacerbation, possible repeat pulmonary embolism. HISTORY OF PRESENT ILLNESS: Ms. Solis is a 71-year-old female very well known to me. According to the patient, she is sick for the last few days. She has shortness of breath with mild exertion. She has orthopnea and PND. Four months ago, she had pulmonary embolism. She was seen by Dr. Ramírez and he was giving her some Eliquis, but she quit it a month ago. REVIEW OF THE SYSTEM: As in history of present illness. PAST MEDICAL HISTORY: 1. COPD. 2. Coronary artery disease. 3. Hypertension. 4. Sick sinus syndrome. 5. Hypercholesterolemia. 6. Osteoporosis. 7. History of vertebral fracture. PAST SURGICAL HISTORY: 1. Back surgery. 2. Appendectomy. 3. Cholecystectomy. 4. She had CABG times 3. 5. Hysterectomy. 6. AICD placement. ALLERGIES: SHE IS ALLERGIC TO PENICILLIN AND IV IODINE. PRESENT MEDICATIONS: [employer] was reviewed. PERSONAL AND SOCIAL HISTORY: The patient is . She is nondrinker. Probably, she is still smoking. FAMILY HISTORY: Noncontributory. PHYSICAL EXAMINATION: GENERAL: Now, the patient is lying comfortably in bed. She is not in acute distress. VITAL SIGNS: The blood pressure is 140/57, pulse is 90, respiration is 17, temperature 98.4, SpO2 94% on room air. HEENT: Conjunctivae are pink. Sclerae not icteric. NECK: Neck is supple. No JVD. CHEST: The chest excursion is minimal on both sides. There are bilateral crackles and wheeze on forceful expiration. CONSULT REPORT [id number] KACI SOLIS HEART: Rhythm regular. Normal sound. No murmur. ABDOMEN: Abdomen is soft. Bowel sounds present. No hepatosplenomegaly. RECTAL: Deferred. EXTREMITIES: No cyanosis. No clubbing. 1+ pedal edema. SKIN: The skin is warm. Normal turgor. SENIOR PHYSICIAN: The patient is awake and alert. There is no obvious cranial nerve abnormality. The gait was not tested. Chest radiograph; there is bilateral increased interstitial marking. V/Q scan; intermediate probability. WBC 5.7, hemoglobin 12.8, hematocrit 41.4, and platelet count 117. Chemistry; sodium 144, potassium 4.6, BUN is 17, creatinine 0.8. The D-dimer is positive. INR is 1.18. IMPRESSION: 1. Pulmonary edema. 2. Pulmonary embolism with positive D-dimer and V/Q scan with intermediate probability. The patient had PE 4 months ago. 3. Acute exacerbation of COPD. 4. Congestive heart failure. 5. Coronary artery disease. 6. Possible community-acquired pneumonia. RECOMMENDATION: 1. Continue with Levaquin, adjust the dose. 2. Increase Bumex to IV. 3. Methylprednisolone IV, Benadryl premedication, albuterol and ipratropium nebulizer, Brovana and budesonide nebulizer, supplemental oxygen if required. We will proceed with CTA of the chest. At the moment, we will continue Lovenox 1 mg per kg subcutaneously b.i.d. Dr. Benitez, thank you for involving me in the care of Ms. Solis. TRANSINT:[id number] Voice Confirmation ID: [id number] DOCUMENT ID: [id number] RENAE RIOS MD at 1410 CC: ANNEMARIE BENITEZ MD [id number] DICTATION DATE: 07/21/17 1716 FUSE MAKER: 07/21/17 1950 ADM IN [facility] [address] [place] [address]
--- NOTE | ~2017-07-20 | EC ---
PATIENT:KACI BELL DATE OF SERVICE: 07/20/17 SEX: F MEDICAL RECORD: [id number] DATE OF : 41 LOCATION:D.M2 D.213 AGE OF PATIENT: 71 ADMISSION DATE: 07/20/17 REFERRING PHYSICIAN: INTERPRETING PHYSICIAN: KASSI TORRES MD ECHOCARDIOGRAM REPORT ECHO CHARGES 4 ECHO COMPLETE Date: 07/22 CLINICAL DIAGNOSIS: CHF ECHOCARDIOGRAPHIC MEASUREMENTS (adult normal given) AC root (d.<3.7cm) 3.1 cm LV Septum d (<1.2 cm> 0.9 cm Valve Excursion 1.9 cm LV Septum (systole) 1.4 cm Left Atria (s.<4.0cm> 3.2 cm LVPW d(<1.2cm) 1.2 cm RV (d.<2.3cm) 2.3 cm LVPW (sytole) 2.0 cm LV diastole(<5.6CM) 6.2 cm MV E-F(>70mm/sec) cm LV systole 4.3 cm LVOT Diameter 1.7 cm MV exc.(>10mm) cm Est.ejection fraction (50-75%) % DOPPLER: LVIT cm/sec A 83.0 cm/sec E 70.0 cm/sec LA cm/sec RVSP 76.4 mmHg LVOT 91.0 cm/sec AOP1/2T m/s Asc. Ao 184 cm/sec RVOT 61.0 cm/sec RA cm/sec PA 102 cm/sec AV Gradient Peak 14.0 mmHg AV Mean 5.6 mmHg AV Area 0.9 cm MV Gradient Peak 3.7 mmHg MV Mean 1.7 mmHg MV Area cm COMMENTS: Senior Safety Support Manager: Yarelis DONOVANOE Construction Project Engineer: 4 Dr. Torres TAPE# PACS Pericardial Effusion N DATE OF SERVICE: PROCEDURE: Transthoracic echocardiogram. FINDINGS: 1. The left ventricle is mildly dilated. There are regional wall motion abnormalities evident. There is left ventricular hypertrophy. Inflow characteristics are consistent with diastolic dysfunction versus possible elevations in the left ventricular end-diastolic pressure. The patient does have a bundle-branch block, which also shows dyssynchronous wall motion ECHOCARDIOGRAM REPORT [id number] KACI BELL throughout the left ventricular contraction. 2. Anterior septal wall is akinetic. The overall ejection fraction is 25% to 30%. The posterior wall is hyperkinetic. 3. The left atrium is normal size, normal function. 4. The aortic valve is thickened, but has no evidence of aortic stenosis and is functionally otherwise normal. 5. The mitral valve has moderate mitral regurgitation. 6. The tricuspid valve has severe tricuspid regurgitation. There is pacer artifact extending from the right atrium into the right ventricle, and the RVSP is calculated at 70 mmHg consistent with severe pulmonary hypertension. 7. The right atrium is dilated. 8. The right ventricle is dilated, but normal function. 9. The pulmonic valve has moderate pulmonic insufficiency and the estimated end-diastolic pressure and wedge pressure are elevated. CONCLUSIONS: The patient has evidence of ischemic cardiomyopathy with severe decrease in function. Evidence also of right heart failure and elevation in the wedge pressure. The patient does have a pacer artifact also seen. TRANSINT:[id number] Voice Confirmation ID: [id number] DOCUMENT ID: [id number] KASSI TORRES MD at 1426 CC: [id number] DICTATION DATE: 07/24/17 0756 INFLATED BALL MOLDER: 07/24/17 1000 DIS IN 07/26/[address] [facility] [address] [place] [address]
--- NOTE | ~2017-07-20 | HP ---
PATIENT: KACI BELL MEDICAL RECORD: [id number] ACCOUNT: [id number] LOCATION:[address] : 41 ADMISSION DATE: 07/20/17 HISTORY AND PHYSICAL EXAMINATION DATE OF ADMISSION: 07/20/2017 CHIEF COMPLAINT: Shortness of breath for 3 days. HISTORY OF PRESENT ILLNESS: This is a 71-year-old female with severe COPD followed by Dr. Gutiérrez and she has been alone in her house for a couple of days. Her daughter came back today and found her minimally responsive. She brought her to our office and she was hypoxic there with low blood pressure. She was taken to the Emergency Department where she was seen and has been given some breathing treatments. Chest x-ray showed development of interstitial disease compared to the last chest x-ray which is suggesting an early pneumonia, at the very least she has COPD exacerbation. She probably has a component of congestive heart failure as her proBNP was 17,377. She is admitted for further care. PAST MEDICAL AND SURGICAL HISTORY: COPD, coronary artery disease, hypertension, sick sinus syndrome, high cholesterol, arthritis, osteoporosis, and vertebral fractures. PAST SURGICAL HISTORY: Appendectomy, cholecystectomy, coronary artery bypass graft, hysterectomy, AICD placement. She has had a T12 corpectomy at [facility] and then had a 2 stage T4-pelvis deformity correction. ALLERGIES: IODINE AND PENICILLIN. HOME MEDICATIONS: Aspirin 81 mg a day, Ventolin HFA 2 puffs every 4-6 hours as needed, temazepam 30 mg at bedtime, Cordarone 200 mg twice a day, buspirone 7.5 mg twice a day, and Lasix 40 mg once a day. HABITS: She continues to smoke occasionally. No alcohol or drugs. SOCIAL HISTORY: She is and retired. FAMILY HISTORY: Father had cancer. Mother had a stroke. REVIEW OF SYSTEMS: GENERAL: No major weight changes. HEENT: No sinus or allergy problems. RESPIRATORY: Long history of smoking. Long history of chronic obstructive pulmonary disease. CARDIAC: She has coronary artery disease and has had bypass surgery. GASTROINTESTINAL: Has reflux. GENITOURINARY: No significant problems. MUSCULOSKELETAL: Has compression fractures with osteoporosis. NEUROLOGIC: No headaches, no seizures. PSYCHIATRIC: No depression. She does have some anxiety. PHYSICAL EXAMINATION: VITAL SIGNS: Temperature 98.8, pulse 95, respirations 18, blood pressure 161/76, O2 sat 92% on 2 liters. HISTORY AND PHYSICAL [id number] KACI BELL GENERAL: She is awake and alert, does not appear in acute distress (she does not remember seeing me at all in my office earlier today). HEENT: Grossly within normal limits. NECK: Supple. No JVD or bruit. HEART: Regular rate and rhythm. LUNGS: With distant breath sounds, a few scattered rales. ABDOMEN: Soft, flat, nontender. EXTREMITIES: No edema. LABORATORY DATA: EKG shows paced rhythm. INR 1.18. D-dimer is elevated at 1.01. Basic metabolic panel is all normal. AST 79, alkaline phosphatase 153. Other liver enzymes are normal. ProBNP is elevated at 17,377, troponin 0.048. Influenza A and B are negative. Chest x-ray shows development of interstitial disease suggestive of possible early pneumonia compared to previous film. The patient's last echocardiogram was 03/05/2017, showing ejection fraction of approximately 30% to 35%. ASSESSMENT: 1. Chronic obstructive pulmonary disease exacerbation. 2. Pneumonia. 3. [id number] congestive heart failure. PLAN: We will diurese, breathing treatments, steroids, antibiotics. We will consult Dr. Gutiérrez. Consider consulting cardiology. Other tests and procedures as warranted. TRANSINT:[id number] Voice Confirmation ID: [id number] DOCUMENT ID: [id number] ANNEMARIE BENITEZ MD at 0931 CC: [id number] DICTATION DATE: 07/20/172158 COMMERCIAL CORRESPONDENT: 07/20/17 2304 ADM IN [facility] [id number] [place] [address]
[~2017-07-20 14:17] MED LIST: ALDACTONE25 MG PO; BAYER CHEWABLE81 MG PO; BUMEX2 MG PO; BUSPIRONE HCL7.5 MG PO; COREG 3.1253.125 MG PO; DOXYCYCLINE HY100 M2 PO; ELIQUIS5 MG PO; HYDROCODON-ACE1 EAC7 PO; LISINOPRIL5 MG PO; MEDROL DOSE PACK4 MG PO; PACERONE200 MG PO; PROVENTIL HFA6.7 GM INH; TEMAZEPAM30 MG PO; ZOCOR10 MG PO
[2017-07-20 16:01] LABS: BASOPHILS 0.2 % (0-2); EOSINOPHILS 0 % (0-7); HEMATOCRIT 41.4 % (36.0-48.0); HEMOGLOBIN 12.8 g/dL (12-16); IMMATURE GRANULOCYTES 0.2 % (0-5); LYMPHOCYTES 5.1 % (15-50); MCH 30.5 pg (26.0-34.0); MCHC 30.9 g/dL (31.0-37.0); MCV 98.6 fL (80.0-100.0); MEAN PLATELET VOLUME 9.8 fL (7.4-10.4); MONOCYTES 5.6 % (2-11); NEUTROPHILS 88.9 % (40-80); RDW 15.5 % (11.5-14.5); WBC 5.9 10x3/uL (4.8-10.8)
[2017-07-20 16:03] LABS: PLATELET COUNT 117 10x3/uL (130-400)
[2017-07-20 17:52] LABS: INR 1.18 (0.85-1.17); PROTIME 14.6 SECONDS (11.6-15.0)
[2017-07-20 17:53] LABS: APTT 44.7 SECONDS (22.8-39.4)
[2017-07-20 17:55] LABS: D-DIMER-QUANTITATIVE 1.01 ug/mLFEU (0.20-0.54)
[2017-07-20 17:57] LABS: ALBUMIN 3.4 g/dL (3.4-5.0); ANION GAP 11.4 mmol/L (8-16); BILIRUBIN - TOTAL 0.6 mg/dL (0.2-1.3); CALCIUM 8.3 mg/dL (8.5-10.1); CARBON DIOXIDE 31.2 mmol/L (21.0-32.0); CREATININE - SERUM 0.8 mg/dL (0.6-1.3); POTASSIUM - SERUM 4.6 mmol/L (3.5-5.1); PROTEIN - SERUM 6.7 g/dL (6.4-8.2)
[2017-07-20 18:04] LABS: TROPONIN-I 0.048 ng/mL (0.000-0.060)
[2017-07-20] MEDS ORDERED: BUMEX2 MG PO (20:33)
[2017-07-20] MEDS ORDERED: PROAIR HFA8.5 GM INH (20:34)
[2017-07-20 21:09] VITALS: BP 161/76
[2017-07-20 22:16] VITALS: BMI 16.8
[2017-07-21 04:45] LABS: BASOPHILS 0.3 % (0-2); EOSINOPHILS 0 % (0-7); HEMATOCRIT 39.8 % (36.0-48.0); HEMOGLOBIN 12.3 g/dL (12-16); IMMATURE GRANULOCYTES 0.3 % (0-5); LYMPHOCYTES 5.5 % (15-50); MCH 30.1 pg (26.0-34.0); MCHC 30.9 g/dL (31.0-37.0); MCV 97.5 fL (80.0-100.0); MEAN PLATELET VOLUME 9.5 fL (7.4-10.4); MONOCYTES 1.4 % (2-11); NEUTROPHILS 92.5 % (40-80); PLATELET COUNT 158 10x3/uL (130-400); RBC 4.08 10x6/uL (4.00-5.40); RDW 15.2 % (11.5-14.5); WBC 3.7 10x3/uL (4.8-10.8)
[2017-07-21 04:57] LABS: CALC OSMOLALITY 286 mosm/kg (275-300); CALCIUM 8.2 mg/dL (8.5-10.1); CARBON DIOXIDE 30.6 mmol/L (21.0-32.0); CHLORIDE - SERUM 107 mmol/L (98-107); CREATININE - SERUM 0.7 mg/dL (0.6-1.3); GLUCOSE 126 mg/dL (74-106); POTASSIUM - SERUM 4.7 mmol/L (3.5-5.1); SODIUM 142 mmol/L (136-145); UREA NITROGEN 18 mg/dL (7-18); eGFR NON AFRICAN AMERICAN 87 mL/min (90-120)
[2017-07-21 06:16] VITALS: BP 148/76
[2017-07-21 08:27] VITALS: BP 121/61
[2017-07-21 10:39] VITALS: Ht 160 cm; Wt 43.5 kg
[2017-07-21 11:46] VITALS: BP 118/70
[2017-07-21 15:34] VITALS: BP 140/57
[2017-07-21 20:00] VITALS: BP 135/63
[2017-07-22] VITALS: BP 127/57
[2017-07-22 04:00] VITALS: BP 128/64
[2017-07-22 05:16] LABS: BASOPHILS 0.2 % (0-2); EOSINOPHILS 0 % (0-7); HEMATOCRIT 40.2 % (36.0-48.0); IMMATURE GRANULOCYTES 0.2 % (0-5); MCH 30.2 pg (26.0-34.0); MCHC 29.9 g/dL (31.0-37.0); MEAN PLATELET VOLUME 9.8 fL (7.4-10.4); MONOCYTES 0.9 % (2-11); NEUTROPHILS 95.7 % (40-80); PLATELET COUNT 183 10x3/uL (130-400); RBC 3.98 10x6/uL (4.00-5.40); RDW 15.4 % (11.5-14.5)
[2017-07-22 05:23] LABS: WBC 5.8 10x3/uL (4.8-10.8)
[2017-07-22 05:36] LABS: ANION GAP 8.6 mmol/L (8-16); CALCIUM 8.7 mg/dL (8.5-10.1); CARBON DIOXIDE 37.8 mmol/L (21.0-32.0); POTASSIUM - SERUM 5.4 mmol/L (3.5-5.1)
[2017-07-22 07:49] VITALS: BP 138/60
[2017-07-22 11:15] VITALS: BP 149/56
[2017-07-22 15:14] VITALS: BP 121/55
[2017-07-22] MEDS ORDERED: IPRAT-ALBUT 0.5-3 ML UPD (16:26)
[2017-07-22 20:00] VITALS: BP 124/50
[2017-07-23] VITALS: BP 138/59
[2017-07-23 04:00] VITALS: BP 132/55
[2017-07-23 05:44] LABS: BASOPHILS 0.2 % (0-2); EOSINOPHILS 0 % (0-7); HEMATOCRIT 39.4 % (36.0-48.0); IMMATURE GRANULOCYTES 0.2 % (0-5); LYMPHOCYTES 3.3 % (15-50); MCHC 30.5 g/dL (31.0-37.0); MEAN PLATELET VOLUME 9.3 fL (7.4-10.4); MONOCYTES 3.2 % (2-11); NEUTROPHILS 93.1 % (40-80); PLATELET COUNT 196 10x3/uL (130-400); WBC 5.7 10x3/uL (4.8-10.8)
[2017-07-23 05:52] LABS: CALCIUM 8.4 mg/dL (8.5-10.1); CREATININE - SERUM 0.9 mg/dL (0.6-1.3)
[2017-07-23 05:54] LABS: MCV 98.5 fL (80.0-100.0)
[2017-07-23 06:07] LABS: ANION GAP 7.8 mmol/L (8-16); POTASSIUM - SERUM 3.8 mmol/L (3.5-5.1)
[2017-07-23 07:38] VITALS: BP 135/53
[2017-07-23 11:14] VITALS: BP 146/54
[2017-07-23 15:23] VITALS: BP 144/64
[2017-07-23 20:00] VITALS: BP 157/66
[2017-07-24 04:00] VITALS: BP 140/63
[2017-07-24 05:42] LABS: BASOPHILS 0 % (0-2); EOSINOPHILS 0 % (0-7); HEMATOCRIT 40.4 % (36.0-48.0); HEMOGLOBIN 12.4 g/dL (12-16); IMMATURE GRANULOCYTES 0.2 % (0-5); LYMPHOCYTES 6.7 % (15-50); MCHC 30.7 g/dL (31.0-37.0); MCV 97.8 fL (80.0-100.0); MEAN PLATELET VOLUME 9.3 fL (7.4-10.4); MONOCYTES 7.9 % (2-11); NEUTROPHILS 85.2 % (40-80); PLATELET COUNT 195 10x3/uL (130-400); RBC 4.13 10x6/uL (4.00-5.40); RDW 15.2 % (11.5-14.5); WBC 4.9 10x3/uL (4.8-10.8)
[2017-07-24 06:06] LABS: ANION GAP 7.8 mmol/L (8-16); CREATININE - SERUM 1.1 mg/dL (0.6-1.3); POTASSIUM - SERUM 3.2 mmol/L (3.5-5.1)
[2017-07-24 06:08] LABS: CARBON DIOXIDE 43.4 mmol/L (21.0-32.0)
[2017-07-24 09:26] VITALS: BP 102/75
[2017-07-24 12:03] VITALS: BP 100/70
[2017-07-24 15:57] VITALS: BP 141/58
[2017-07-24 20:00] VITALS: BP 138/53
[2017-07-25 04:00] VITALS: BP 133/50
[2017-07-25 05:22] LABS: BASOPHILS 0 % (0-2); EOSINOPHILS 0 % (0-7); HEMATOCRIT 39.4 % (36.0-48.0); HEMOGLOBIN 12.3 g/dL (12-16); LYMPHOCYTES 7.1 % (15-50); MCH 30.1 pg (26.0-34.0); MCHC 31.2 g/dL (31.0-37.0); MCV 96.6 fL (80.0-100.0); MEAN PLATELET VOLUME 9.2 fL (7.4-10.4); MONOCYTES 6.2 % (2-11); NEUTROPHILS 86.7 % (40-80); PLATELET COUNT 189 10x3/uL (130-400); RBC 4.08 10x6/uL (4.00-5.40); RDW 14.9 % (11.5-14.5); WBC 4.5 10x3/uL (4.8-10.8)
[2017-07-25 05:39] LABS: CALCIUM 8.1 mg/dL (8.5-10.1); POTASSIUM - SERUM 3.1 mmol/L (3.5-5.1)
[2017-07-25 05:41] LABS: CARBON DIOXIDE 47.1 mmol/L (21.0-32.0)
[2017-07-25 08:07] VITALS: BP 120/50
[2017-07-25 12:13] VITALS: BP 131/44
[2017-07-25 17:23] VITALS: BP 128/52
[2017-07-25 21:24] VITALS: BP 151/50
[2017-07-26 02:14] VITALS: BP 123/75
[2017-07-26 05:36] VITALS: BP 107/44
[2017-07-26 08:29] VITALS: BP 102/45
[2017-07-26 11:31] VITALS: BP 113/41
[2017-07-26] MEDS ORDERED: OMNICEF300 MG PO (14:26)
[2017-07-26] MEDS ORDERED: MEDROL DOSE PACK4 MG PO (14:27)
== END 2017-07-26 15:39 | disposition home or self-care (01) | DRG 291 ==
LOC: D.ER 14:17 → D.EDHOLD 18:03 → D.M2 18:03
PROVIDERS: Emergency Medicine; Family Medicine; Physician Assistant Medical
DX: I11.0 Hypertensive heart disease with heart failure (principal); J18.9 Pneumonia, unspecified organism; J96.01 Acute respiratory failure with hypoxia; J44.0 Chronic obstructive pulmonary disease with (acute) lower respiratory infection; J44.1 Chronic obstructive pulmonary disease with (acute) exacerbation; I50.23 Acute on chronic systolic (congestive) heart failure; I25.10 Atherosclerotic heart disease of native coronary artery without angina pectoris; Z95.1 Presence of aortocoronary bypass graft; M81.0 Age-related osteoporosis without current pathological fracture; Z95.810 Presence of automatic (implantable) cardiac defibrillator; Z72.0 Tobacco use